=== PATIENT | female | born 1985 | race African-American/Black ===

== ENCOUNTER 2021-02-11 10:11 | Inpatient (IN) | payer OTHER ==
[~2021-02-11] VITALS: Ht 162.6 cm; Wt 52.7 kg
[2021-02-11] MEDS ORDERED: D5%-LACTATED RINGERS 1,000 ML IV SCH (11:30)
[2021-02-11] MEDS ORDERED: CALCIUM CARBONATE 500 MG TAB.CHEW PO PRN (11:30)
[2021-02-11] MEDS ORDERED: FENTANYL PF 100 MCG/2ML IVPush PRN (11:30)
[2021-02-11] MEDS ORDERED: OXYTOCIN 30U/ 0.9% NaCL 500ML 500 ML IV PRN (11:30)
[2021-02-11] MEDS ORDERED: OXYTOCIN 30U/ 0.9% NaCL 500ML 500 ML IV ONE (11:30)
[2021-02-11] MEDS ORDERED: TERBUTALINE 1 MG/ML, 1ML IVPush PRN (11:30)
[2021-02-11] MEDS ORDERED: FENTANYL PF 100 MCG/2ML IV PRN (11:30)
[2021-02-11] MEDS ORDERED: ONDANSETRON 2MG/ML, 2ML IVPush PRN (11:30)
[2021-02-11] MEDS ORDERED: TERBUTALINE 1 MG/ML, 1ML SQ PRN (11:30)
[2021-02-11] MEDS ORDERED: LACTATED RINGERS 1,000 ML IV SCH (11:30)
[2021-02-11 11:48] LABS: BASOPHILS % (AUTO) 0 % (0-1); EOSINOPHILS % (AUTO) 0 % (1-7); LYMPHOCYTES % (AUTO) 11 % (22-44); MEAN CORPUSCULAR HEMOGLOBIN 31.8 pg (27.0-34.8); MEAN CORPUSCULAR HGB CONC 34.2 g/dL (32.4-35.8); MEAN PLATELET VOLUME 8.4 fL (7.4-10.4); MONOCYTES % (AUTO) 8 % (2-9); NEUTROPHILS % (AUTO) 81 % (42-75); PLATELET COUNT 148 x10^3/uL (130-400)
[2021-02-11 14:28] VITALS: BP 119/70
[2021-02-11] MEDS ORDERED: LIDOCAINE 1%, 20ML ONE (15:13)
[2021-02-11] MEDS ORDERED: MISOPROSTOL 200 MCG TABLET ONE (15:13)
[2021-02-11] MEDS ORDERED: NEWBORN KIT ONE (15:13)
[2021-02-11 19:21] VITALS: BP 130/68
[2021-02-12] MEDS ORDERED: OXYcodone/APAP 5/325MG TABLET PO PRN (01:30)
[2021-02-12] MEDS ORDERED: OXYTOCIN 30U/ 0.9% NaCL 500ML 500 ML IV SCH (01:30)
[2021-02-12] MEDS ORDERED: ONDANSETRON 2MG/ML, 2ML IV PRN (01:30)
[2021-02-12] MEDS ORDERED: RHOGAM FROM BLOOD BANK 1 NOTE EA IM/IV ONE (01:30)
[2021-02-12] MEDS ORDERED: BISACODYL 10 MG SUPP PR PRN (01:30)
[2021-02-12] MEDS ORDERED: DOCUSATE 100 MG CAPSULE PO PRN (01:30)
[2021-02-12] MEDS ORDERED: ACETAMINOPHEN 325 MG TABLET PO PRN (01:30)
[2021-02-12] MEDS ORDERED: MISOPROSTOL 200 MCG TABLET PR PRN (01:30)
[2021-02-12] MEDS ORDERED: HYDROcodone/APAP 5/325 TABLET PO PRN (01:30)
[2021-02-12 07:25] LABS: MEAN CORPUSCULAR HEMOGLOBIN 31.6 pg (27.0-34.8); MEAN PLATELET VOLUME 8.5 fL (7.4-10.4); PLATELET COUNT 142 x10^3/uL (130-400); RED BLOOD COUNT 4.04 x10^6/uL (3.82-5.3); RED CELL DISTRIBUTION WIDTH 15.6 % (9.6-15.2)
[2021-02-12 07:30] LABS: ALANINE AMINOTRANSFERASE 27 U/L (12-78); ALBUMIN 2.3 g/dL (3.4-5.0); ANION GAP 9 mmol/L (5-15); CALCIUM 8.3 mg/dL (8.5-10.1); CHLORIDE 105 mmol/L (98-107); CREATININE 0.58 mg/dL (0.55-1.02)
[2021-02-12 07:32] LABS: ALKALINE PHOSPHATASE 110 U/L (45-117); BILIRUBIN,TOTAL 0.3 mg/dL (0.2-1.0); TOTAL PROTEIN 5.8 g/dL (6.4-8.2)
[2021-02-12 07:33] LABS: BILIRUBIN, DIRECT < 0.1 mg/dL (0.1-0.2)
[2021-02-12 08:31] LABS: LYMPH#(MANUAL) 0.46 x10^3/uL (1-3.4); LYMPHS% (MANUAL) 3 % (22-44); MONOS#(MANUAL) 1.54 x10^3/uL (0.3-2.7); MONOS% (MANUAL) 10 % (2-9)
[2021-02-12 08:32] LABS: <PLATELET ESTIMATE> ADEQUATE; <PLT MORPHOLOGY> NORMAL PLT MORPH; <RBC MORPHOLOGY> NORMAL; BAND#(MANUAL) 1.54 x10^3/uL; BANDS%(MANUAL) 10 % (0-7); SEGS% (MANUAL) 77 % (42-75)
[2021-02-12] MEDS: PRENATAL VIT/IRON/FA 1 EACH TABLET PO SCH (09:00)
[2021-02-12 11:48] VITALS: BP 128/69
[2021-02-12 13:27] LABS: MEAN CORPUSCULAR HEMOGLOBIN 31.6 pg (27.0-34.8); MEAN PLATELET VOLUME 8.2 fL (7.4-10.4); PLATELET COUNT 134 x10^3/uL (130-400); RED BLOOD COUNT 3.57 x10^6/uL (3.82-5.3); RED CELL DISTRIBUTION WIDTH 15.6 % (9.6-15.2)
[2021-02-12 14:11] LABS: BAND#(MANUAL) 1.02 x10^3/uL; BANDS%(MANUAL) 7 % (0-7); LYMPH#(MANUAL) 0.73 x10^3/uL (1-3.4); LYMPHS% (MANUAL) 5 % (22-44); MONOS#(MANUAL) 0.87 x10^3/uL (0.3-2.7); MONOS% (MANUAL) 6 % (2-9); SEG#(MANUAL) 11.89 x10^3/uL (1.8-6.8); SEGS% (MANUAL) 82 % (42-75)
[2021-02-12 14:13] LABS: <PLATELET ESTIMATE> ADEQUATE; <PLT MORPHOLOGY> NORMAL PLT MORPH; <RBC MORPHOLOGY> NORMAL
[2021-02-12 16:37] VITALS: BP 128/76
[2021-02-12 20:00] VITALS: BP 112/80
[2021-02-13 01:00] VITALS: BP 110/76
[2021-02-13] MEDS: PRENATAL VIT/IRON/FA 1 EACH TABLET PO SCH (09:00)
[2021-02-13 09:45] VITALS: BP 125/76
== END 2021-02-13 20:06 | disposition home or self-care (01) | DRG 807 ==
LOC: LDOP 10:11 → LDIP 11:08 → 2NW 02-12 08:45
PROVIDERS: ADMIT Obstetrics & Gynecology; ATTEND Obstetrics & Gynecology
PROC: 10E0XZZ Delivery of Products of Conception, External Approach (ICD-10-PCS; principal; 2021-02-12)
PROC: 0KQM0ZZ Repair Perineum Muscle, Open Approach (ICD-10-PCS; 2021-02-12)
DX: O42.92 Full-term premature rupture of membranes, unspecified as to length of time between rupture and onset of labor (principal); Z37.0 Single live birth; O69.1XX0 Labor and delivery complicated by cord around neck, with compression, not applicable or unspecified; O24.420 Gestational diabetes mellitus in childbirth, diet controlled; Z20.822 Contact with and (suspected) exposure to COVID-19; O70.1 Second degree perineal laceration during delivery; Z80.0 Family history of malignant neoplasm of digestive organs; Z80.3 Family history of malignant neoplasm of breast; Z3A.38 38 weeks gestation of pregnancy
CPT/HCPCS: 36415; 80053; 82248; 82962; 84550; 85025; 86592; 86850; 86900; 87635; G0378; J2590; J7120